=== PATIENT | male | born 1990 | race Caucasian/White ===

== ENCOUNTER 2019-02-18 09:26 | Emergency (ER) | payer OTHER ==
[~2019-02-18] VITALS: Ht 182.9 cm; Wt 99.0 kg
[2019-02-18 09:26] VITALS: BP 141/78
[2019-02-18 10:05] LABS: INFLUENZA A PATIENT NEGATIVE (NEGATIVE); INFLUENZA B PATIENT POSITIVE (NEGATIVE)
--- NOTE | 2019-02-18 10:22 | PHYS DOC ---
General Chief Complaint: FLU SYMPTOM Stated Complaint: FLU SYMPTOMS Time Seen by MD: 09:38 Source: patient History of Present Illness Initial Comments Patient is a 28 showed female presents with nasal congestion rhinorrhea, sore throat body aches and chills starting several hours prior to ED arrival. Symptoms moderate to severe. Denies shortness of breath wheezing or history of asthma. No other acute symptoms or complaints. Timing/Duration: this morning Severity: moderate Prior Episodes/Possible Cause: occasional episodes Modifying Factors: improves with other Associated Symptoms: nasal congestion, nasal drainage, sore throat Allergies: Coded Allergies: No Known Drug Allergies (Unverified , 02/18/19) Past Medical History Medical History: no pertinent history Review of Systems Constitutional: chills, diaphoresis, fever, weakness EENTM: nose pain, nose congestion, throat pain Respiratory: cough Cardiovascular: chest pain Gastrointestinal: no symptoms reported Musculoskeletal: back pain, muscle stiffness Skin: no symptoms reported Psychiatric/Neurological: no symptoms reported Hematologic/Lymphatic: no symptoms reported Immunological/Allergic: no symptoms reported All Other Systems: Reviewed and Negative Physical Exam General Appearance: other (chilling, appears uncomfortable) Ears, Nose, Throat: TMs normal, pharynx normal, nasal congestion, nasal drainage, pharyngeal erythema Neck: non-tender, supple Respiratory: chest non-tender Cardiovascular: normal peripheral pulses Gastrointestinal: normal bowel sounds Extremities: normal range of motion, other Skin: normal color Lymphatic: no adenopathy Orders, Labs, Meds Influenza B-positive. Will treat supportively with PCP follow-up as needed. Term precautions reviewed. EMILIE IZAGUIRRE DO Feb 18, 2019 10:22
[2019-02-18] MEDS ORDERED: HYDR-3165 PO (10:29)
[2019-02-18] MEDS ORDERED: GUAI1TBM10 PO (10:29)
== END 2019-02-18 10:32 | disposition home or self-care (01) ==
LOC: ER 09:26
DX: J10.1 Influenza due to other identified influenza virus with other respiratory manifestations (principal)
CPT/HCPCS: 87070; 87804; 87880; 99284